=== PATIENT | female | born 1970 | race Caucasian/White ===

== ENCOUNTER 2020-05-10 00:16 | Emergency (ER) | payer MEDICAID ==
[~2020-05-10] VITALS: Ht 160 cm; Wt 62.7 kg
--- NOTE | 2020-05-10 00:30 | NUR ---
pt taken to bathroom for urine speciman and chamged into green scrubs
--- NOTE | 2020-05-10 00:48 | NUR ---
lab at bedside drawing blood
--- NOTE | 2020-05-10 00:55 | NUR ---
dr clark to see patient
--- NOTE | 2020-05-10 00:56 | NUR ---
pharmacy has medication ready sent food preparation supervisor to get medication
[2020-05-10] MEDS ORDERED: LORazepam 1 MG tablet PO ONE (01:00)
[2020-05-10 01:04] LABS: BASOPHILS # (AUTO) 0.2 X10'3 (0-0.2); BASOPHILS % (AUTO) 1.6 % (0-1); EOSINOPHILS # (AUTO) 0.4 X10'3 (0-0.9); EOSINOPHILS % (AUTO) 4.1 % (0-6); HEMATOCRIT 43.7 % (35.0-45.0); HEMOGLOBIN 15.2 g/dl (12.0-16.0); LYMPHOCYTES # (AUTO) 2.5 X10'3 (1.1-4.8); LYMPHOCYTES % (AUTO) 23.8 % (21-51); MEAN CORPUSCULAR HEMOGLOBIN 34.2 PG (27.0-31.0); MEAN CORPUSCULAR HGB CONC 34.8 g/dL (33.0-36.5); MEAN CORPUSCULAR VOLUME 98.4 FL (78-98); MEAN PLATELET VOLUME 7.8 FL (7.4-10.4); MONOCYTES # (AUTO) 0.9 X10'3 (0-0.9); MONOCYTES % (AUTO) 8.3 % (2-12); NEUTROPHILS # (AUTO) 6.5 X10'3 (1.8-7.7); NEUTROPHILS % (AUTO) 62.2 % (42-75); PLATELET COUNT 357 X10'3 (140-440); RED BLOOD COUNT 4.44 X10'6 (4.20-5.60); RED CELL DISTRIBUTION WIDTH 14.1 % (11.5-14.5); WHITE BLOOD COUNT 10.4 X10'3 (4.5-11.0)
[2020-05-10 01:14] LABS: URINE AMPHETAMINE SCREEN NEGATIVE (Neg); URINE BARBITUATE SCREEN NEGATIVE (Neg); URINE BENZODIAZEPINES SCREEN NEGATIVE (Neg); URINE CANNABINOID SCREEN POSITIVE (Neg); URINE COCAINE SCREEN NEGATIVE (Neg); URINE METHADONE SCREEN NEGATIVE (Neg); URINE OPIATE SCREEN NEGATIVE (Neg); URINE PHENCYCLIDINE SCREEN NEGATIVE (Neg)
[2020-05-10 01:15] LABS: URINE HCG NEGATIVE (NEG)
[2020-05-10 01:17] LABS: ALANINE AMINOTRANSFERASE 23 U/L (12-78); ALBUMIN 4.3 G/DL (3.4-5.0); ALKALINE PHOSPHATASE 47 IU/L (46-116); ANION GAP 17 (8-16); ASPARTATE AMINO TRANSFERASE 21 U/L (10-37); BILIRUBIN,TOTAL 0.1 MG/DL (0.1-1.0); BLOOD UREA NITROGEN 12 MG/DL (7-18); BUN/CREATININE RATIO 12.8 (6.6-38.0); CALCIUM 9.7 MG/DL (8.5-10.1); CHLORIDE 105 MMOL/L (99-107); CREATININE 0.94 MG/DL (0.40-0.90); GLUCOSE 114 MG/DL (70-104); POTASSIUM 4.2 MMOL/L (3.5-5.1); SODIUM 141 MMOL/L (135-145); TOTAL CARBON DIOXIDE 18.9 MMOL/L (24-32); TOTAL PROTEIN 8.7 G/DL (6.4-8.2); eGFR 64 ML/MIN
[2020-05-10 01:19] LABS: ACETAMINOPHEN < 2.0 UG/ML (10-30)
--- NOTE | 2020-05-10 01:31 | NUR ---
PT GETTING UIP TO BEDSIDE SCREEENING HOSTILE WORDS AND TELLING STAFF TO "FUCK OFF " . GIVING HER MIDDLE FINGER AND TELLING STAFF TO GET THE FUCK AWAY FROM HER . SECURITY CALLED TO BEDSIDE , PT HAS ALREADY BEEN MEDICATED WITH 1 MG OF ATIVAN PO . PT IS DIFFIUCLT TO CONSOLE .
[2020-05-10] MEDS ORDERED: diphenhydrAMINE 50 mg/ml inj IM ONE (01:35)
[2020-05-10] MEDS ORDERED: haloperidol lactate 5mg/ml inj IM ONE (01:35)
[2020-05-10] MEDS ORDERED: albuterol 1.25 MG/3 ML (1/2 strength) nebule NEB ONE (02:10)
--- NOTE | 2020-05-10 02:52 | NUR ---
While in restraints pt asked for warm blankets, and water. Both were provided. Pt stated that she needed a breathing treatment. RT contacted to administer, pt refused. Pt resting comfortably, and demeanor calm and sleepy. Restraints removed, CSM intact x 4
[2020-05-10 03:31] VITALS: BP 110/66
[2020-05-10] MEDS ORDERED: NO HOME MEDS (03:36)
--- NOTE | 2020-05-10 03:36 | NUR ---
med rec complete
--- NOTE | 2020-05-10 04:03 | NUR ---
diet order faxed to dietary
--- NOTE | 2020-05-10 04:45 | NUR ---
PACKET FAXED TO [facility]
--- NOTE | 2020-05-10 07:52 | NUR ---
PT'S JEWLERY; 1 PAIR OF YELLOW EARRINGS WITH CLEAR STONES AND A WHITE CHAIN/PENDENT WITH CLEAR STONE, WAS GIVEN TO CITY AUDITOR TO PLACE IN HOSPITAL SAFE.
--- NOTE | 2020-05-10 08:17 | NUR ---
breaking primary RN, pt is laying on her right side, eyes closed, regular breathing present
--- NOTE | 2020-05-10 09:05 | NUR ---
Patient resting in bed. No distress observed. Continue to monitor.
--- NOTE | 2020-05-10 10:05 | NUR ---
Patient given water. Patient calm and cooperative. Patient spoke with family on the phone. No distress observed. Continue to monitor.
--- NOTE | 2020-05-10 12:07 | NUR ---
Patient continues to sleep. No distress observed. Continue to monitor.
--- NOTE | 2020-05-10 12:20 | NUR ---
Patient on the phone with her . No distress observed. Continue to monitor.
--- NOTE | 2020-05-10 13:03 | NUR ---
Hernando RUFF, with patient. Continue to monitor.
--- NOTE | 2020-05-10 14:26 | NUR ---
Registration speaking with patient. No distress observed. Continue to monitor,
== END 2020-05-10 15:10 | disposition home or self-care (01) ==
LOC: ER 00:16
DX: R45.851 Suicidal ideations (principal); J44.9 Chronic obstructive pulmonary disease, unspecified; F41.9 Anxiety disorder, unspecified; G89.29 Other chronic pain; M54.9 Dorsalgia, unspecified; F12.10 Cannabis abuse, uncomplicated; Z98.890 Other specified postprocedural states; Z88.1 Allergy status to other antibiotic agents; Z88.6 Allergy status to analgesic agent; Z88.8 Allergy status to other drugs, medicaments and biological substances
CPT/HCPCS: 80053; 80305; 80320; 80329; 81025; 85025; 94640; 96372; 99285; J1200; J1630; 94760